=== PATIENT | female | born 1955 | race Caucasian/White ===

== ENCOUNTER 2018-11-08 23:19 | Emergency (ER) | payer OTHER ==
--- NOTE | 2018-11-08 23:30 | PDOC ---
History of Present Illness - General Stated Complaint: URINATING BLOOD Time Seen by Provider: 11/08/18 23:20 - History of Present Illness Initial Comments: 11/08/18 23:30 The patient is a 63 year old female with a PMH of gastritis who presents to our ED c/o 2 day h/o cramping abdominal pain and bloody stools. States the pain is constant in her epigastrium with intermittent abdominal cramping in her lower abdomen. Notes multiple episodes of black tarry stools with some bright red blood in toilet. Medications includes Rantidine and Fe pills. Tolerating PO intake. No nausea/vomiting. Patient offers a container of her stool for FOBT testing. Notes she was to be evaluated by her PMD on 11/07/18 however she was unable to attend. Patient denies chest pain, headache or dizziness. Patient denies fever, chills,dysuria, frequency, urgency or hematuria. Patient denies sick contacts or recent travel. NKDA Surgical: none reported PMD: Dr. Mukesh Beckwith M.D. As per EMR patient has never been evaluated in our ED on prior occasion. Past History - Past Medical History Allergies/Adverse Reactions: Allergies Allergy/AdvReac Type Severity Reaction Status Date / Time No Known Allergies Allergy Verified 11/08/18 23:37 Home Medications: Ambulatory Orders Cetirizine HCl 10 mg PO DAILY 11/09/18 Ranitidine 150 mg PO DAILY 11/09/18 Review of Systems - Review of Systems Constitutional: No: Chills, Fever HEENTM: No: Recent change in vision Respiratory: No: Cough, Shortness of Breath Cardiac (ROS): No: Chest Pain, Lightheadedness, Palpitations ABD/GI: Yes: Tarry Stools. No: Constipated, Diarrhea, Nausea, Vomiting *Physical Exam - Physical Exam General Appearance: Yes: Nourished, Appropriately Dressed HEENT: positive: Normal Voice, Hearing Grossly Normal Neck: positive: Trachea midline, Supple Respiratory/Chest: positive: Lungs Clear, Normal Breath Sounds Cardiovascular: positive: S1, S2. negative: Edema Gastrointestinal/Abdominal: positive: Normal Bowel Sounds, Soft. negative: Distended, Guarding, Rebound, Tenderness Extremity: positive: Normal Capillary Refill, Normal Inspection Integumentary: positive: Normal Color, Dry, Warm Neurologic: positive: Fully Oriented, Alert ED Treatment Course - LABORATORY CBC & Chemistry Diagram: 11/09/18 00:05 11/09/18 00:05 Medical Decision Making - Medical Decision Making 11/08/18 23:52 63 year old female with cramping abdominal pain + black tarry stools (patient on Fe pills). VS unremarkable. No TTP or peritoneal signs. Frontal diagnosis: hemorrhoid, diverticulosis, PUD, gastritis, pancreatitis also consider, but less likely cholecystitis, appendicitis. Will defer U/S or CT at this time given clinical history and presentation. 11/09/18 00:21 FOBT negative 11/09/18 00:29 Orthostatic (-) : Supine (135/75), Sitting (140/75), Standing (142/70) 11/09/18 00:37 Hb 12.1 No leukocytosis CMP pending Patient reassessed @ bedside. Resting comfortably. Asymptomatic. Ambulatory, tolerating PO intake. 11/09/18 01:13 Lipase negative, no electrolyte derangement At this time I have low clinical suspicion for acute medical emergency. Will discharge home with GI follow-up, supportive care. Clinical Impression: Gastritis I discussed the physical exam findings, ancillary test results and final diagnoses with the patient. I answered all of the patient's questions. The patient was satisfied with the care received and felt comfortable with the discharge plan and treatment plan. The patient will return to the Emergency Department with any new, persistent or worsening symptoms. *DC/Admit/Observation/Transfer Diagnosis at time of Disposition: Abdominal pain - Discharge Dispostion Disposition: HOME Condition at time of disposition: Good Decision to Admit order: No - Referrals Referrals: Mirlande Franco DO [Staff Physician] - - Patient Instructions Printed Discharge Instructions: DI for Abdominal Pain-Adult Additional Instructions: You were evaluated for your abdominal cramping. Your labs show no concerning findings and at this time you are safe for discharge home. Please follow-up with a scuba instructor and your primary care doctor in the next 1 week. We have provided a referral to gastroenterology for you or you may call your insurance company for a list of doctors. Your care is not complete until you are evaluated by gastroenterology and your primary care doctor. Return to the Emergency Department for any new/worsening/concerning symptoms. - Post Discharge Activity
--- NOTE | 2018-11-08 23:32 | PDOC ---
Attending Attestation - HPI HPI: 11/09/18 01:01 The patient is a 63 year old female with a significant past medical history of gastritis who reports to the emergency department with rectal bleed for 3 days. The patient reports that she has been experiencing some associated black stool and lower abdominal pain with her symptoms. She states that it is worsened with bearing down for a bowel movement. The patient denies any any lightheadedness, weakness. She denies any nausea or vomiting. She denies any other symptoms or complaints. - Physicial Exam PE: 11/09/18 01:01 GENERAL: Awake, alert, and fully oriented, in no acute distress HEAD: No signs of trauma EYES: PERRLA, EOMI, sclera anicteric, conjunctiva clear ENT: Auricles normal inspection, hearing grossly normal, nares patent, oropharynx clear without exudates. Moist mucosa NECK: Normal ROM, supple, no lymphadenopathy, JVD, or masses LUNGS: Breath sounds equal, clear to auscultation bilaterally. No wheezes, and no crackles HEART: Regular rate and rhythm, normal S1 and S2, no murmurs, rubs or gallops ABDOMEN: (+)mild tenderness. Soft, normoactive bowel sounds. No guarding, no rebound. No masses EXTREMITIES: Normal range of motion, no edema. No clubbing or cyanosis. No cords, erythema, or tenderness NEUROLOGICAL: Cranial nerves II through XII grossly intact. Normal speech, normal gait SKIN: Warm, Dry, normal turgor, no rashes or lesions noted. Documentation prepared by Domingo Richey, acting as medical assistant prn for Starr Bauman MD. <Domingo Richey - Last Filed: 11/09/18 01:00> - Resident Resident Name: Estephania Gifford - ED Attending Attestation I have performed the following: I have examined & evaluated the patient, The case was reviewed & discussed with the resident, I agree w/resident's findings & plan - Medical Decision Making 11/09/18 01:17 Pt has no rectal bleed in the ER. She reports black stools at home. No pepto bismol use. She uses iron pills. Guaiac negative. HB/HCT normal. BUN not elevated. Pt will be asked to follow with Dr. Arvizu. She has only epigastric pain. Gastritis, She can continue with her ranitidine. <Starr Bauman - Last Filed: 11/09/18 01:19>
[2018-11-08 23:37] VITALS: BMI 21.4
[2018-11-09 00:31] LABS: BASO % 0.3 % (0-2.0); EOS % 2.5 % (0-4.5); HEMOGLOBIN 12.1 GM/dL (10.7-15.3); LYMPH % 47.4 % (8-40); MCHC 33.6 g/dl (32.0-36.0); MEAN CELL VOLUME 95.2 fl (80-96); MEAN PLT VOLUME 9.4 fl (7.5-11.1); NEUT % 42.8 % (42.8-82.8); PLATELET COUNT 156 K/MM3 (134-434); RBC 3.78 M/mm3 (3.60-5.2); RDW 13.2 % (11.6-15.6); WHITE BLOOD COUNT 4.2 K/mm3 (4.0-10.0)
[2018-11-09 00:43] LABS: INR 0.97 (0.83-1.09); PROTHROMBIN TIME (PATIENT) 11.5 SEC (9.7-13.0)
[2018-11-09 00:46] LABS: ACTIVATED PTT 30.5 SECONDS (25.2-36.5)
[2018-11-09 01:03] LABS: ALK PHOS 55 U/L (45-117); ANION GAP 5 MMOL/L (8-16); BILIRUBIN,TOTAL 0.3 mg/dL (0.2-1); BLOOD UREA NITROGEN 19 mg/dL (7-18); CALCIUM 10.2 mg/dL (8.5-10.1); CHLORIDE 105 mmol/L (98-107); CO2 28 mmol/L (21-32); CREATININE 0.8 mg/dL (0.55-1.3); GLUCOSE,RANDOM 93 mg/dL (74-106); LIPASE 224 U/L (73-393); POTASSIUM 4.3 mmol/L (3.5-5.1); SGOT/AST 18 U/L (15-37); SGPT/ALT 22 U/L (13-61); SODIUM 139 mmol/L (136-145); TOT PROT 7.3 g/dl (6.4-8.2)
[2018-11-09 02:02] VITALS: BP 130/76; PULSE 68; TEMP 98.3
== END 2018-11-09 01:58 | disposition home or self-care (01) ==
LOC: JER 23:19
DX: R10.9 Unspecified abdominal pain (principal); Z87.19 Personal history of other diseases of the digestive system
CPT/HCPCS: 36415; 80053; 82272; 83690; 85025; 85610; 85730; 86850; 86900; 86901; 99283-25

== ENCOUNTER 2020-07-19 12:22 | Emergency (ER) | payer OTHER ==
--- NOTE | 2020-07-19 12:28 | PDOC ---
Rapid Medical Evaluation Time Seen by Provider: 07/19/20 12:26 Medical Evaluation: Allergies Allergy/AdvReac Type Severity Reaction Status Date / Time No Known Allergies Allergy Verified 01/21/20 18:13 07/19/20 12:26 I have performed a brief in-person evaluation of this patient. CC: facial abrasions s/p trip and fall. Denies LOC. Also with right wrist pain. PE: multiple abrasions to left side of face. No bony tenderness, crepitus, deformity or SQ emphysema to face, c-spine or wrist. Orders: CTH, CT c-spine, xrays- right wrist and hand, Td, tylenol, ice Patient will proceed to ED for further evaluation. Discharge Disposition - Diagnosis Fall - Referrals - Patient Instructions - Post Discharge Activity
[2020-07-19] MEDS ORDERED: ACETAMINOPHEN 500 MG TABLET (FP) PO ONE (12:29)
[2020-07-19] MEDS ORDERED: DIPHTH,PERTUSS(ACELL),TET 0.5 ML DISP.SYRIN IM ONE ×2 (12:29→13:12)
[2020-07-19 12:42] VITALS: BP 139/90; PULSE 78; TEMP 98.2; BMI 22.8
[2020-07-19] MEDS ORDERED: ACETAMINOPHEN 500 MG TABLET (FP) ONE (13:11)
--- NOTE | 2020-07-19 14:58 | PDOC ---
History of Present Illness - General Chief Complaint: Injury Stated Complaint: FALL Time Seen by Provider: 07/19/20 12:26 - History of Present Illness Initial Comments: 07/19/20 14:51 65-year-old female presents for evaluation after a fall. She complains of right knee pain and facial pain after hitting her face on the concrete while running. She had a mechanical fall. No post injury nausea vomiting or visual changes Past History - Medical History Allergies/Adverse Reactions: Allergies Allergy/AdvReac Type Severity Reaction Status Date / Time No Known Allergies Allergy Verified 01/21/20 18:13 Home Medications: Ambulatory Orders Cetirizine HCl 10 mg PO DAILY 11/09/18 Ranitidine 150 mg PO DAILY 11/09/18 Acetaminophen [Tylenol .Regular Strength -] 650 mg PO Q4H PRN tablet 01/25/20 Cefepime [Maxipime (Restricted To Id) -] 1 gm IVPB Q8H-IV vial 01/25/20 Enoxaparin [Lovenox -] 40 mg SQ DAILY disp.syrin 01/25/20 Hydroxychloroquine So4 [Plaquenil -] 200 mg PO BID tablet 01/25/20 Pantoprazole Sodium [Protonix -] 20 mg PO DAILY tablet.ec 01/25/20 Zinc Sulfate [Orazinc -] 220 mg PO BID #30 capsule 01/26/20 COPD: No GI Disorders: Yes (gastritis) HTN: Yes - Reproductive History Is Patient Now?: No - Psycho-Social/Smoking History Smoking History: Never smoked Have you smoked in the past 12 months: No Information on smoking cessation initiated: No - Substance Abuse Hx (Audit-C & DAST Scrn) How often the patient has a drink containing alcohol: Never Score: In Men: 4 or > Positive; In Women: 3 or > Positive: 0 Screen Result (Pos requires Nsg. Audit-10AR): Negative In the last yr the pt used illegal drug/Rx for NonMed reason: No Score: Yes response is considered Positive: 0 Screen Result (Positive result requires Nsg. DAST-10): Negative Review of Systems - Review of Systems ABD/GI: No: Nausea, Vomiting *Physical Exam - Vital Signs Last Vital Signs Temp Pulse Resp BP Pulse Ox 98.2 F 78 16 139/90 100 07/19/20 12:30 07/19/20 12:30 07/19/20 12:30 07/19/20 12:30 07/19/20 12:30 - Physical Exam General Appearance: Yes: Nourished, Appropriately Dressed. No: Apparent Distress HEENT: positive: Symmetrical, Other (Superficial abrasion on the skin overlying the left zygomatic bone cheek and upper lip without discrete lacerations) Neck: positive: Supple Respiratory/Chest: positive: Normal Breath Sounds. negative: Respiratory Distress Musculoskeletal: positive: Normal Inspection Extremity: positive: Normal Inspection ED Treatment Course - RADIOLOGY Radiology Studies Ordered: Category Date Time Status FACIAL BONES CT W/O CONTRAST [CT] Stat CT Scan 07/19/20 13:49 Completed - Medications Given in the ED: ED Medications Discontinued Medications Generic Name Dose Route Start Last Admin Trade Name Freq PRN Reason Stop Dose Admin Acetaminophen 1,000 mg 07/19/20 12:07/19/20 13:17 Tylenol - PO 07/19/20 12:30 1,000 mg ONCE ONE Administration Diphtheria/Tetanus/Acell Pertussis 0.5 ml 07/19/20 12:29 07/19/20 13:17 Boostrix - IM 07/19/20 12:30 0.5 ml .ONCE ONE Administration Medical Decision Making - Medical Decision Making 07/19/20 14:52 Scans are negative. Patient has a superficial bruise on her right knee she bears weight without antalgia mild tenderness pain is appropriately superficial full range of motion of the right knee Scans and x-rays are negative. She has full range of motion of the wrist as well. No tenderness. Follow-up with primary care physician for further evaluation. Superficial wound care with soap and water leaving the area open to air. No bacitracin or Neosporin. I have reviewed the pathophysiology with the patient. They are in agreement with the treatment plan all questions were answered to their satisfaction. Understanding for follow-up without fail was also conveyed to the patient. Again they are in agreement. Discharge - Discharge Information Problems reviewed: Yes Clinical Impression/Diagnosis: Fall, Facial abrasion, Knee contusion, Wrist pain Condition: Stable Disposition: HOME - Admission No - Follow up/Referral Referrals: Mukesh Beckwith [Primary Care Provider] - - Patient Discharge Instructions Additional Instructions: Follow-up with your primary care physician in 1 to 2 days for further evaluation and treatment options and return to the emergency room should you have further issues. Follow-up with your primary care physician without fail. Please keep the areas of your abrasions clean with soap and water and left open to air. Do not apply any ointment such as bacitracin or Neosporin. - Post Discharge Activity
== END 2020-07-19 15:08 | disposition home or self-care (01) ==
LOC: JERFT 12:22
PROC: 3E0234Z Introduction of Serum, Toxoid and Vaccine into Muscle, Percutaneous Approach (ICD-10-PCS; principal; 2020-07-19)
DX: S00.81XA Abrasion of other part of head, initial encounter (principal); S80.01XA Contusion of right knee, initial encounter
CPT/HCPCS: 70450-TC; 70486-TC; 72125-TC; 73110-TC-RT-FY; 73130-TC-RT-FY; 90471; 90715; 99285-25

== ENCOUNTER 2022-08-14 00:49 | Emergency (ER) | payer OTHER ==
[2022-08-14 01:07] VITALS: BP 140/78; PULSE 72; RESP 18; TEMP 97.8; BMI 22.1
[2022-08-14] MEDS ORDERED: KETOROLAC TROMETHAMINE 30 MG/1 ML VIAL IM ONE (02:58)
[2022-08-14] MEDS ORDERED: DEXAMETHASONE SOD PHOSPHATE 10 MG/1 ML VIAL IVPUSH ONE (03:02)
[2022-08-14] MEDS ORDERED: KETOROLAC TROMETHAMINE 30 MG/1 ML VIAL ONE (03:03)
[2022-08-14] MEDS ORDERED: DEXAMETHASONE SOD PHOSPHATE 10 MG/1 ML VIAL ONE (03:24)
[2022-08-14] MEDS ORDERED: DEXAMETHASONE 4 MG TABLET (FP) PO ONE (03:24)
[2022-08-14 03:55] LABS: BASO % 0.7 % (0-2.0); EOS % 1.3 % (0-4.5); HEMATOCRIT 35.9 % (32.4-45.2); HEMOGLOBIN 12.1 GM/dL (10.7-15.3); LYMPH % 19.8 % (8-40); MCHC 33.7 g/dl (32.0-36.0); MEAN CELL VOLUME 94.9 fl (80-96); MEAN PLT VOLUME 9.3 fl (7.5-11.1); MONO % 5.9 % (3.8-10.2); NEUT % 72.3 % (42.8-82.8); PLATELET COUNT 164 10^3/uL (134-434); RBC 3.79 M/mm3 (3.60-5.2); RDW 13.5 % (11.6-15.6); WHITE BLOOD COUNT 8.4 K/mm3 (4.0-10.0)
[2022-08-14 04:14] LABS: CHLORIDE 108 mmol/L (98-107); SODIUM 140 mmol/L (136-145)
[2022-08-14 04:16] LABS: CALCIUM 9.4 mg/dL (8.5-10.1)
[2022-08-14 04:17] LABS: ALBUMIN 3.6 g/dl (3.4-5.0); ANION GAP 5 MMOL/L (8-16); BLOOD UREA NITROGEN 11.6 mg/dL (7-18); CO2 27 mmol/L (21-32); GLUCOSE,RANDOM 104 mg/dL (74-106)
[2022-08-14 04:19] LABS: CREATININE 0.7 mg/dL (0.55-1.3); URIC ACID 3.8 mg/dL (2.6-7.2)
[2022-08-14 04:20] LABS: SGOT/AST 18 U/L (15-37); SGPT/ALT 25 U/L (13-61)
[2022-08-14 04:21] LABS: BILIRUBIN,TOTAL 0.3 mg/dL (0.2-1); TOT PROT 6.7 g/dl (6.4-8.2)
[2022-08-14 04:23] LABS: ALK PHOS 30 U/L (45-117)
[2022-08-14 05:30] LABS: ERYTHROCYTE SEDIMENTATION RATE 12 mm/hr (0-30)
== END 2022-08-14 06:45 | disposition home or self-care (01) ==
LOC: JER 00:49
PROC: 3E023GC Introduction of Other Therapeutic Substance into Muscle, Percutaneous Approach (ICD-10-PCS; principal; 2022-08-14)
DX: M25.561 Pain in right knee (principal)
CPT/HCPCS: 36415; 73562-TC-RT-FY; 73700-TC-RT; 80053; 82550; 84550; 85025; 85651; 86140; 99285-25

== ENCOUNTER 2023-12-27 14:20 | Inpatient (IN) | payer OTHER ==
[2023-12-27 14:26] VITALS: BMI 24.2
[2023-12-27 17:33] LABS: BASO % 0.5 % (0-2.0); EOS % 2.5 % (0-4.5); HEMATOCRIT 36.2 % (32.4-45.2); LYMPH % 25.9 % (8-40); MCHC 33.3 g/dl (32.0-36.0); MEAN CELL VOLUME 93.1 fl (80-96); MEAN PLT VOLUME 9.3 fl (7.5-11.1); MONO % 5.1 % (3.8-10.2); PLATELET COUNT 213 10^3/uL (134-434); RBC 3.89 M/mm3 (3.60-5.2); RDW 12.8 % (11.6-15.6); WHITE BLOOD COUNT 7.7 K/mm3 (4.0-10.0)
[2023-12-27 17:38] LABS: VENOUS BASE EXCESS -0.2 mmol/L (-2-2); VENOUS O2 SATURATION 47.1 % (70-80); VENOUS PCO2 52.3 mmHg (38-52); VENOUS PH 7.323 (7.310-7.410)
[2023-12-27 17:47] LABS: POTASSIUM 4.1 mmol/L (3.5-5.1)
[2023-12-27 17:49] LABS: CALCIUM 10.4 mg/dL (8.5-10.1)
[2023-12-27 17:50] LABS: ALBUMIN 3.7 g/dl (3.4-5.0); BLOOD UREA NITROGEN 12.1 mg/dL (7-18)
[2023-12-27 17:53] LABS: CREATININE 0.7 mg/dL (0.55-1.3)
[2023-12-27 17:54] LABS: BILIRUBIN,TOTAL 0.3 mg/dL (0.2-1); TOT PROT 7.4 g/dl (6.4-8.2)
[2023-12-27] MEDS ORDERED: ALBUTEROL SO4 2.5/IPRATROPIUM 0.5 INH SOL 3 ML VIAL.NEB. NEB ONE (18:01)
[2023-12-27] MEDS ORDERED: AMPICILLIN NA/SULBACTAM NA 3 GM/100 ML BAG IVPB ONE (18:01)
[2023-12-27] MEDS ORDERED: methylPREDNISolone NA SUCC 125 MG/2 ML VIAL ONE (18:01)
[2023-12-27] MEDS: ALBUTEROL SO4 2.5/IPRATROPIUM 0.5 INH SOL 3 ML VIAL.NEB. NEB ONE ×2 (18:18)
[2023-12-27] MEDS: methylPREDNISolone NA SUCC 125 MG/2 ML VIAL IVPUSH ONE (18:18)
[2023-12-27] MEDS: AMPICILLIN NA/SULBACTAM NA 3 GM in DEXTROSE 5%-WATER 100 ML IVPB ONE (18:28)
[2023-12-27 20:18] LABS: PH,URINE 6.5 (5.0-8.0); URINE APPEARANCE CLEAR; URINE BILIRUBIN NEGATIVE (NEGATIVE); URINE COLOR YELLOW; URINE GLUCOSE (UA) NEGATIVE (NEGATIVE); URINE KETONE NEGATIVE (NEGATIVE); URINE LEUK ESTERASE NEGATIVE (NEGATIVE); URINE NITRITE NEGATIVE (NEGATIVE); URINE PROTEIN NEGATIVE (NEGATIVE); URINE UROBILINOGEN 0.2 mg/dL (0.2-1.0)
[2023-12-28] MEDS ORDERED: AMPICILLIN NA/SULBACTAM NA 3 GM/100 ML BAG IVPB ONE ×4 (05:29→20:15)
[2023-12-28] MEDS ORDERED: ONDANSETRON 4 MG/2 ML VIAL IVPUSH PRN (05:31)
[2023-12-28] MEDS: PANTOPRAZOLE SODIUM 40 MG VIAL IVPUSH SCH (05:37)
[2023-12-28] MEDS: AMPICILLIN NA/SULBACTAM NA 3 GM in DEXTROSE 5%-WATER 100 ML IVPB SCH (05:37)
[2023-12-28] MEDS ORDERED: methylPREDNISolone NA SUCC 40 MG/1 ML VIAL ONE (06:17)
[2023-12-28] MEDS: methylPREDNISolone NA SUCC 40 MG/1 ML VIAL IVPUSH SCH (06:26)
[2023-12-28 07:34] LABS: HEMATOCRIT 36.2 % (32.4-45.2); HEMOGLOBIN 11.8 GM/dL (10.7-15.3); MCH 30.6 pg (25.7-33.7); MCHC 32.7 g/dl (32.0-36.0); MEAN CELL VOLUME 93.6 fl (80-96); MEAN PLT VOLUME 9.9 fl (7.5-11.1); PLATELET COUNT 214 10^3/uL (134-434); RBC 3.86 M/mm3 (3.60-5.2); RDW 12.8 % (11.6-15.6); WHITE BLOOD COUNT 6.1 K/mm3 (4.0-10.0)
[2023-12-28 07:50] LABS: POTASSIUM 3.9 mmol/L (3.5-5.1)
[2023-12-28 07:53] LABS: ALBUMIN 3.6 g/dl (3.4-5.0); CALCIUM 10.4 mg/dL (8.5-10.1)
[2023-12-28 07:54] LABS: MAGNESIUM 2.1 mg/dL (1.8-2.4)
[2023-12-28 07:57] LABS: PHOSPHOROUS 2.8 mg/dL (2.5-4.9)
[2023-12-28 07:58] LABS: BILIRUBIN,TOTAL 0.3 mg/dL (0.2-1)
[2023-12-28 07:59] LABS: BLOOD UREA NITROGEN 7.6 mg/dL (7-18); CREATININE 0.7 mg/dL (0.55-1.3); TOT PROT 7.4 g/dl (6.4-8.2)
[2023-12-28] MEDS ORDERED: ALBUTEROL SO4 2.5/IPRATROPIUM 0.5 INH SOL 3 ML VIAL.NEB. NEB ONE ×4 (09:51→20:15)
[2023-12-28] MEDS: ALBUTEROL SO4 2.5/IPRATROPIUM 0.5 INH SOL 3 ML VIAL.NEB. NEB SCH (09:52)
[2023-12-28] MEDS ORDERED: methylPREDNISolone NA SUCC 40 MG/1 ML VIAL IVPUSH SCH (10:00)
[2023-12-28] MEDS: TAMOXIFEN CITRATE 10 MG TABLET PO SCH (10:50)
[2023-12-28] MEDS: LEFLUNOMIDE 10 MG TABLET PO SCH (10:50)
[2023-12-28] MEDS: ENOXAPARIN NA (PORCINE) 40 MG/0.4 ML DISP.SYRIN SQ SCH (10:50)
[2023-12-28] MEDS: guaiFENesin 600 MG TABLET.ER (FP) PO SCH (11:48)
[2023-12-28] MEDS: BUDESONIDE/FORMETEROL FUMARATE 80/4.5 mcg INHALER IH SCH (11:48)
[2023-12-29] MEDS ORDERED: LORATADINE 10 MG TABLET ONE (00:42)
[2023-12-29] MEDS ORDERED: GABAPENTIN 100 MG CAPSULE ONE (00:42)
[2023-12-29] MEDS ORDERED: methylPREDNISolone NA SUCC 40 MG/1 ML VIAL ONE (00:43)
[2023-12-29] MEDS: GABAPENTIN 100 MG CAPSULE PO SCH (01:13)
[2023-12-29] MEDS: LORATADINE 10 MG TABLET PO SCH (01:14)
[2023-12-29] MEDS: PANTOPRAZOLE SODIUM 40 MG VIAL IVPUSH SCH (06:01)
[2023-12-29 07:35] LABS: HEMATOCRIT 34.2 % (32.4-45.2); MCH 30.5 pg (25.7-33.7); MCHC 32.3 g/dl (32.0-36.0); MEAN CELL VOLUME 94.3 fl (80-96); MEAN PLT VOLUME 9.7 fl (7.5-11.1); PLATELET COUNT 197 10^3/uL (134-434); RBC 3.62 M/mm3 (3.60-5.2); RDW 12.8 % (11.6-15.6); WHITE BLOOD COUNT 13.2 K/mm3 (4.0-10.0)
[2023-12-29 07:57] LABS: POTASSIUM 4.6 mmol/L (3.5-5.1)
[2023-12-29 07:59] LABS: BLOOD UREA NITROGEN 9.1 mg/dL (7-18)
[2023-12-29 08:00] LABS: ALBUMIN 3.2 g/dl (3.4-5.0)
[2023-12-29 08:03] LABS: CREATININE 0.6 mg/dL (0.55-1.3)
[2023-12-29 08:04] LABS: BILIRUBIN,TOTAL 0.2 mg/dL (0.2-1); TOT PROT 6.8 g/dl (6.4-8.2)
[2023-12-29] MEDS ORDERED: ALBUTEROL SO4 2.5/IPRATROPIUM 0.5 INH SOL 3 ML VIAL.NEB. NEB ONE (08:19)
[2023-12-29] MEDS ORDERED: CEFTRIAXONE 1 GM/50 ML BAG ONE (09:27)
[2023-12-29] MEDS ORDERED: cefTRIAXone SODIUM 1 GM VIAL ONE (09:27)
[2023-12-29] MEDS: CEFTRIAXONE 1 GM in DEXTROSE 5%-WATER - 50 ML IVPB SCH (09:47)
[2023-12-29 10:33] LABS: ANISOCYTOSIS 0; HELMET CELLS 0; HOWELL-JOLLY BODIES 0; MACROCYTOSIS 0; OVALOCYTE 0; ROULEAU 0; SICKELED CELLS 0; TARGET CELLS 0; TEAR DROP CELLS 0; TOXIC GRANULATION 0
[2023-12-29 11:30] VITALS: BP 135/58; PULSE 72; RESP 20; TEMP 98.4
== END 2023-12-29 11:30 | disposition home or self-care (01) | DRG 194 ==
LOC: JER 14:20 → JERBED 23:13
PROVIDERS: ADMIT Internal Medicine; ATTEND Internal Medicine
DX: J18.9 Pneumonia, unspecified organism (principal); J45.901 Unspecified asthma with (acute) exacerbation; J98.11 Atelectasis; M06.9 Rheumatoid arthritis, unspecified; K29.70 Gastritis, unspecified, without bleeding; M17.11 Unilateral primary osteoarthritis, right knee; R09.02 Hypoxemia; R50.9 Fever, unspecified; Z85.3 Personal history of malignant neoplasm of breast
CPT/HCPCS: 0241U-QW; 36415; 71045-TC-FY; 71250-TC; 80053; 81003; 82607; 82746; 82803; 83605; 83735; 84100; 84439; 84443; 84481; 84484; 85025; 85027; 87040; 87086; 93005; 93010; 99285-25

== ENCOUNTER 2024-10-09 12:09 | Observation (INO) | payer OTHER ==
[2024-10-09 12:39] VITALS: BP 113/64; PULSE 79; RESP 16; TEMP 98.3; BMI 23.4
[2024-10-09] MEDS ORDERED: FAMOTIDINE 20 MG/50 ML IVPB 20 MG/50 ML MG IVPB ONE (14:18)
[2024-10-09] MEDS ORDERED: MAG HYDROX/AL HYDROX/SIMETH 30 ML UNIT-DOSE CUP ONE (14:18)
[2024-10-09] MEDS ORDERED: LIDOCAINE 4% PATCH TP ONE (14:18)
[2024-10-09 15:30] LABS: URINE APPEARANCE CLEAR; URINE BILIRUBIN NEGATIVE (NEGATIVE); URINE COLOR YELLOW; URINE GLUCOSE (UA) NEGATIVE (NEGATIVE); URINE KETONE NEGATIVE (NEGATIVE); URINE LEUK ESTERASE NEGATIVE (NEGATIVE); URINE NITRITE NEGATIVE (NEGATIVE); URINE PROTEIN NEGATIVE (NEGATIVE); URINE UROBILINOGEN 0.2 mg/dL (0.2-1.0)
[2024-10-09 15:37] LABS: BASO % 0.8 % (0-2.0); EOS % 3.6 % (0-4.5); HEMATOCRIT 37.3 % (32.4-45.2); HEMOGLOBIN 12.1 GM/dL (10.7-15.3); LYMPH % 43.3 % (8-40); MCH 30.6 pg (25.7-33.7); MCHC 32.5 g/dl (32.0-36.0); MEAN PLT VOLUME 9.5 fl (7.5-11.1); NEUT % 44.3 % (42.8-82.8); PLATELET COUNT 150 10^3/uL (134-434); RBC 3.97 M/mm3 (3.60-5.2); RDW 14.1 % (11.6-15.6); WHITE BLOOD COUNT 4.1 K/mm3 (4.0-10.0)
[2024-10-09 15:58] LABS: POTASSIUM 4.2 mmol/L (3.5-5.1)
[2024-10-09 15:59] LABS: CALCIUM 10.2 mg/dL (8.5-10.1)
[2024-10-09 16:01] LABS: ALBUMIN 3.8 g/dl (3.4-5.0); BLOOD UREA NITROGEN 9.6 mg/dL (7-18)
[2024-10-09 16:04] LABS: CREATININE 0.7 mg/dL (0.55-1.3)
[2024-10-09 16:05] LABS: BILIRUBIN,TOTAL 0.3 mg/dL (0.2-1); TOT PROT 6.8 g/dl (6.4-8.2)
[2024-10-09] MEDS: MAG HYDROX/AL HYDROX/SIMETH 30 ML UNIT-DOSE CUP PO ONE (16:53)
[2024-10-09] MEDS: LIDOCAINE 4% PATCH TP ONE ×2 (16:53→19:26)
[2024-10-09] MEDS: FAMOTIDINE 20 MG/50 ML IVPB 20 MG/50 ML MG IVPB ONE (16:53)
[2024-10-09] MEDS ORDERED: ACETAMINOPHEN 325 MG TABLET (FP) ONE (17:01)
[2024-10-09] MEDS: ACETAMINOPHEN 325 MG TABLET (FP) PO ONE (17:21)
[2024-10-09] MEDS ORDERED: KETOROLAC TROMETHAMINE 15 MG/ML VIAL ONE (19:06)
[2024-10-09] MEDS: KETOROLAC TROMETHAMINE 30 MG/1 ML VIAL IVPUSH ONE (19:26)
[2024-10-09] MEDS: MAGNESIUM CITRATE 300 ML BOTTLE PO ONE (20:49)
[2024-10-09] MEDS ORDERED: LIDOCAINE PATCH REMOVAL MC ONE (22:00)
[2024-10-10] MEDS ORDERED: LIDOCAINE PATCH REMOVAL MC SCH (07:00)
== END 2024-10-09 22:00 | disposition left against medical advice (07) ==
LOC: JER 12:09 → JERBED 19:43
PROVIDERS: ADMIT Internal Medicine; ATTEND Internal Medicine
PROC: 3E033GC Introduction of Other Therapeutic Substance into Peripheral Vein, Percutaneous Approach (ICD-10-PCS; principal; 2024-10-09)
PROC: 3E033NZ Introduction of Analgesics, Hypnotics, Sedatives into Peripheral Vein, Percutaneous Approach (ICD-10-PCS; 2024-10-09)
DX: R10.9 Unspecified abdominal pain (principal); R74.8 Abnormal levels of other serum enzymes; I10 Essential (primary) hypertension; J45.909 Unspecified asthma, uncomplicated; M06.9 Rheumatoid arthritis, unspecified; Z85.3 Personal history of malignant neoplasm of breast; Z92.21 Personal history of antineoplastic chemotherapy; Z92.3 Personal history of irradiation
CPT/HCPCS: 36415; 74177-TC; 80053; 81003; 83605; 83690; 84484; 85025; 87086; 93005; 93010; 96365; 96375; 99285-25; G0378; Q9967